=== PATIENT | female | born 2000 | race American Indian/Alaskan Native ===

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

== ENCOUNTER 2020-11-03 02:00 | Emergency (ER) | payer SELFPAY ==
[2020-11-03 02:21] VITALS: BP 160/68
== END 2020-11-03 03:30 | disposition left against medical advice (07) ==
LOC: ED 02:00
DX: O26.891 Other specified pregnancy related conditions, first trimester (principal); R10.9 Unspecified abdominal pain; Z3A.00 Weeks of gestation of pregnancy not specified; Z53.21 Procedure and treatment not carried out due to patient leaving prior to being seen by health care provider

== ENCOUNTER 2020-11-03 06:19 | Emergency (ER) | payer SELFPAY | END 2020-11-03 09:00 | disposition left against medical advice (07) | LOC: ED 06:19 | DX: O26.899 Other specified pregnancy related conditions, unspecified trimester (principal); R10.9 Unspecified abdominal pain; Z53.21 Procedure and treatment not carried out due to patient leaving prior to being seen by health care provider; Z3A.00 Weeks of gestation of pregnancy not specified ==